=== PATIENT | female | born 1985 | race Caucasian/White ===

== ENCOUNTER 2021-06-14 09:04 | Observation (INO) | payer BC ==
[~2021-06-14] VITALS: Ht 165.1 cm; Wt 93.9 kg
[~2021-06-14 09:04] MED LIST: BUPR-364 PO; EMLA CREAM 5GM TUBE (LIDOCAINE/PRILOCAINE) TOP PRN; HEPARIN SOD (PORCINE) 5000UNITS/ML 1ML VIAL/SYRINGE SQ ONE; KETOROLAC 60MG 2ML VIAL As Ordered ONE; LIDOCAINE 1% MDV 20ML VIAL SQ PRN; LIDOCAINE 2% 100MG/5ML SDV (FOR ANES.) As Ordered ONE; LR 1,000 ML IV ONE; METH20TA31 PO; MIDAZOLAM INJ 2MG/2ML VIAL (J2250 PER 1MG) As Ordered ONE; ONDANSETRON 4MG/2ML VIAL As Ordered ONE; ROCURONIUM BROMIDE 50 MG/5 ML VIAL As Ordered ONE; SUGAMMADEX SODIUM 500 MG/5 ML VIAL (BRIDION) As Ordered ONE; ceFAZolin SOD 2 GM in IV 1 EA IV ONE; dexameTHASONE 4 MG/ML 1ML VIAL (J1100 PER 1MG) As Ordered ONE; fentaNYL 100 MCG/2 ML INJECTION As Ordered ONE; propofoL 200 MG/20 ML VIAL As Ordered ONE
[2021-06-14] MEDS ORDERED: BUPIVACAINE LIPOSOME/PF 1.3% 20ML VIAL (13.3MG/ML)(EXPAREL)(C9290 PER1MG) As Ordered ONE (10:50)
[2021-06-14] MEDS ORDERED: GENTAMICIN SULF 80MG/2ML VIAL As Ordered ONE (10:50)
[2021-06-14] MEDS ORDERED: LIDOCAINE 1% MDV 20ML VIAL As Ordered ONE (11:22)
[2021-06-14] MEDS ORDERED: EPINEPHrine INJ 1 MG/ML 1ML AMP As Ordered ONE (11:22)
[2021-06-14] MEDS ORDERED: fentaNYL 100 MCG/2 ML INJECTION As Ordered ONE (11:44)
[2021-06-14] MEDS ORDERED: propofoL 200 MG/20 ML VIAL As Ordered ONE ×2 (13:29→15:14)
[2021-06-14] MEDS ORDERED: LIDOCAINE 2% 100MG/5ML SDV (FOR ANES.) As Ordered ONE (13:56)
[2021-06-14] MEDS ORDERED: ACETAMINOPHEN 1000MG 100ML IV BTL (OFIRMEV) (J0131 PER 10MG) As Ordered ONE (15:15)
[2021-06-14] MEDS ORDERED: NITROGLYCERIN 2% OINT 1 GM *U/D* PKT As Ordered ONE (15:43)
[2021-06-14] MEDS ORDERED: METOCLOPRAMIDE INJ 10MG/2ML VIAL (J2765 PER 1) IV PRN (16:30)
[2021-06-14] MEDS ORDERED: MEPERIDINE INJ 25 MG/ML VIAL (J2175) IV PRN (16:30)
[2021-06-14] MEDS ORDERED: ONDANSETRON 4MG/2ML VIAL IV PRN ×2 (16:30→16:35)
[2021-06-14] MEDS ORDERED: fentaNYL 100 MCG/2 ML INJECTION IV PRN (16:30)
[2021-06-14] MEDS ORDERED: PERCOCET 5MG/325MG TAB PO PRN (16:30)
[2021-06-14] MEDS ORDERED: LR 1,000 ML IV SCH ×2 (16:30→16:35)
[2021-06-14] MEDS ORDERED: traMADol 50 MG TAB PO PRN (16:35)
[2021-06-14] MEDS ORDERED: KETOROLAC TROMETHAMINE 10 MG TAB PO PRN (16:35)
[2021-06-14] MEDS ORDERED: ACETAMINOPHEN TAB 650MG DOSE (2X325MG) PO PRN (16:35)
[2021-06-14 18:30] VITALS: BP 100/57
[2021-06-14 19:00] VITALS: BP 98/59
[2021-06-14] MEDS: ceFAZolin SOD 1 GM in D5W MINI-BAG PLUS 50 ML IV SCH (19:56)
[2021-06-14 20:00] VITALS: BP 105/66
[2021-06-14 21:00] VITALS: BP 115/63
[2021-06-14 22:00] VITALS: BP 111/69
[2021-06-15 02:00] VITALS: BP 119/59
[2021-06-15] MEDS: ceFAZolin SOD 1 GM in D5W MINI-BAG PLUS 50 ML IV SCH (03:41)
[2021-06-15 06:00] VITALS: BP 115/59
[2021-06-15] MEDS ORDERED: TRAM50TA2 PO (09:44)
== END 2021-06-15 12:30 | disposition home or self-care (01) ==
LOC: M SDC 09:04 → M MS5PR 09:05 → EDUNIT# 11:15 → M MS5PR 18:30
PROVIDERS: ADMIT Plastic Surgery Surgery of the Hand; ATTEND Plastic Surgery Surgery of the Hand
DX: N62 Hypertrophy of breast (principal); F41.9 Anxiety disorder, unspecified; F32.9 Major depressive disorder, single episode, unspecified; Z79.899 Other long term (current) drug therapy; Z88.2 Allergy status to sulfonamides
CPT/HCPCS: 19318; 88300; 88305; 96365; 96366; C9290; J0131; J0171; J0690; J1100; J1580; J1644; J1885; J2250; J2405; J3010

== ENCOUNTER 2021-08-30 06:14 | Day surgery (SDC) | payer BC ==
[~2021-08-30] VITALS: Ht 165.1 cm; Wt 93.8 kg
[~2021-08-30 06:14] MED LIST changes: -EMLA CREAM 5GM TUBE (LIDOCAINE/PRILOCAINE) TOP PRN; -HEPARIN SOD (PORCINE) 5000UNITS/ML 1ML VIAL/SYRINGE SQ ONE; -KETOROLAC 60MG 2ML VIAL As Ordered ONE; -LIDOCAINE 1% MDV 20ML VIAL SQ PRN; -LIDOCAINE 2% 100MG/5ML SDV (FOR ANES.) As Ordered ONE; -LR 1,000 ML IV ONE; -MIDAZOLAM INJ 2MG/2ML VIAL (J2250 PER 1MG) As Ordered ONE; -ONDANSETRON 4MG/2ML VIAL As Ordered ONE; -ROCURONIUM BROMIDE 50 MG/5 ML VIAL As Ordered ONE; -SUGAMMADEX SODIUM 500 MG/5 ML VIAL (BRIDION) As Ordered ONE; +TRAM50TA2 PO; -ceFAZolin SOD 2 GM in IV 1 EA IV ONE; -dexameTHASONE 4 MG/ML 1ML VIAL (J1100 PER 1MG) As Ordered ONE; -fentaNYL 100 MCG/2 ML INJECTION As Ordered ONE; -propofoL 200 MG/20 ML VIAL As Ordered ONE
[2021-08-30 06:57] LABS: HEMATOCRIT 44.9 % (36.0-47.0); HEMOGLOBIN 14.9 g/dl (12.0-15.5); MEAN CORPUSCULAR HGB CONC 33.2 g/dl (32.0-36.5); MEAN CORPUSCULAR VOLUME 90.5 fl (80.0-96.0); PLATELET COUNT, AUTOMATED 209 10^3/uL (150-450); RED BLOOD COUNT 4.96 10^6/uL (4.00-5.40)
[2021-08-30] MEDS ORDERED: ceFAZolin SOD 2 GM in IV 1 EA IV ONE (07:00)
[2021-08-30] MEDS ORDERED: BUPIVACAINE HCL 0.25% 10ML VIAL As Ordered ONE (07:17)
[2021-08-30] MEDS ORDERED: ceFAZolin 1GM VIAL (J0690 PER 500MG) As Ordered ONE (07:17)
[2021-08-30] MEDS ORDERED: BUPIVACAINE LIPOSOME/PF 1.3% 20ML VIAL (13.3MG/ML)(EXPAREL) As Ordered ONE (07:17)
[2021-08-30 07:23] LABS: BLOOD UREA NITROGEN 15 MG/DL (7-18); CALCIUM LEVEL 9.1 MG/DL (8.5-10.1); CARBON DIOXIDE LEVEL 23 MEQ/L (21-32); CHLORIDE LEVEL 109 MEQ/L (98-107); CREATININE FOR GFR 0.74 MG/DL (0.55-1.30); GLOMERULAR FILTRATION RATE > 60.0 (>60); GLUCOSE, FASTING 96 MG/DL (70-100); POTASSIUM SERUM 4.3 MEQ/L (3.5-5.1); SODIUM LEVEL 143 MEQ/L (136-145)
[2021-08-30] MEDS ORDERED: KETOROLAC 60MG 2ML VIAL As Ordered ONE (07:48)
[2021-08-30] MEDS ORDERED: MIDAZOLAM INJ 2MG/2ML VIAL (J2250 PER 1MG) As Ordered ONE (07:48)
[2021-08-30] MEDS ORDERED: propofoL 200 MG/20 ML VIAL As Ordered ONE ×2 (07:48→08:56)
[2021-08-30] MEDS ORDERED: dexameTHASONE 4 MG/ML 1ML VIAL (J1100 PER 1MG) As Ordered ONE (07:48)
[2021-08-30] MEDS ORDERED: LIDOCAINE 2% 100MG/5ML SDV (FOR ANES.) As Ordered ONE (07:48)
[2021-08-30] MEDS ORDERED: fentaNYL 250 MCG/5 ML INJECTION As Ordered ONE (07:48)
[2021-08-30] MEDS ORDERED: ONDANSETRON 4MG/2ML VIAL As Ordered ONE (07:48)
[2021-08-30] MEDS ORDERED: LR 1,000 ML IV SCH (09:15)
[2021-08-30] MEDS ORDERED: fentaNYL 100 MCG/2 ML INJECTION IV PRN (09:15)
[2021-08-30] MEDS ORDERED: ONDANSETRON 4MG/2ML VIAL IV PRN (09:15)
[2021-08-30] MEDS ORDERED: oxyCODONE 5MG TAB PO PRN (09:15)
[2021-08-30] MEDS ORDERED: AMOX500T PO (09:28)
[2021-08-30 10:50] VITALS: BP 119/72
== END 2021-08-30 11:00 | disposition home or self-care (01) ==
LOC: M SDC 06:14
PROVIDERS: ATTEND Plastic Surgery Surgery of the Hand
DX: N64.1 Fat necrosis of breast (principal); T81.31XA Disruption of external operation (surgical) wound, not elsewhere classified, initial encounter; K58.8 Other irritable bowel syndrome; K21.9 Gastro-esophageal reflux disease without esophagitis; F41.9 Anxiety disorder, unspecified; F32.9 Major depressive disorder, single episode, unspecified; Z79.899 Other long term (current) drug therapy; Z88.2 Allergy status to sulfonamides
CPT/HCPCS: 15860; 19350; 36415; 80048; 85027; 87070; 87075; 87077; 87186; 87205; 88304; C9290; J0690; J1100; J1885; J2250; J2405; J3010

== ENCOUNTER 2022-05-12 07:07 | Day surgery (SDC) | payer BC ==
[~2022-05-12] VITALS: Ht 165.1 cm; Wt 98.8 kg
[~2022-05-12 07:07] MED LIST changes: +AMOX500T PO; +HEPARIN SOD (PORCINE) 5000UNITS/ML 1ML VIAL/SYRINGE SQ ONE; +ceFAZolin SOD 2 GM in IV 1 EA IV ONE
[2022-05-12] MEDS ORDERED: LR 1,000 ML IV SCH ×2 (07:35→11:45)
[2022-05-12] MEDS ORDERED: propofoL 200 MG/20 ML VIAL As Ordered ONE (08:30)
[2022-05-12] MEDS ORDERED: ONDANSETRON 4MG 2ML VIAL As Ordered ONE (08:30)
[2022-05-12] MEDS ORDERED: LIDOCAINE 2% 100MG/5ML SDV (FOR ANES.) As Ordered ONE (08:30)
[2022-05-12] MEDS ORDERED: fentaNYL 250 MCG/5 ML INJECTION As Ordered ONE (08:31)
[2022-05-12] MEDS ORDERED: MIDAZOLAM INJ 2MG/2ML VIAL As Ordered ONE (08:31)
[2022-05-12] MEDS ORDERED: BUPIVACAINE LIPOSOME/PF 1.3% 20ML VIAL (13.3MG/ML)(EXPAREL) As Ordered ONE (08:34)
[2022-05-12] MEDS ORDERED: BUPIVACAINE HCL 0.25% 10ML VIAL As Ordered ONE (08:34)
[2022-05-12] MEDS ORDERED: GENTAMICIN SULF 80MG/2ML VIAL As Ordered ONE (08:34)
[2022-05-12] MEDS ORDERED: LIDOCAINE 1% MDV 20ML VIAL As Ordered ONE (08:41)
[2022-05-12] MEDS ORDERED: EPINEPHrine INJ 1 MG/ML 1ML AMP As Ordered ONE (08:41)
[2022-05-12] MEDS ORDERED: LIDOCAINE 5% OINT 30GM TUBE As Ordered ONE (09:21)
[2022-05-12] MEDS ORDERED: BALANCED SALT SOLN OPHTH 15 ML BTL As Ordered ONE (09:32)
[2022-05-12] MEDS ORDERED: HEPARIN SOD (PORCINE) 5000UNITS/ML 1ML VIAL/SYRINGE As Ordered ONE (09:35)
[2022-05-12] MEDS ORDERED: ACETAMINOPHEN 1000MG 100ML IV BAG As Ordered ONE (09:42)
[2022-05-12] MEDS ORDERED: ePHEDrine SULFATE 25 MG/5 ML(5MG/ML) SYRINGE As Ordered ONE (09:52)
[2022-05-12] MEDS ORDERED: ceFAZolin 1GM VIAL As Ordered ONE (09:55)
[2022-05-12] MEDS ORDERED: oxyCODONE 5MG TAB PO PRN (11:45)
[2022-05-12] MEDS ORDERED: fentaNYL 100 MCG/2 ML INJECTION IV PRN (11:45)
[2022-05-12] MEDS ORDERED: HYDROMORPHONE HCL 0.5 MG/ 0.5 ML SYRINGE IV PRN (11:45)
[2022-05-12] MEDS ORDERED: ONDANSETRON 4MG 2ML VIAL IV PRN (11:45)
[2022-05-12] MEDS ORDERED: TRAM50TA2 PO (12:05)
[2022-05-12 14:08] VITALS: BP 139/88
== END 2022-05-12 14:10 | disposition home or self-care (01) ==
LOC: M SDC 07:07
PROVIDERS: ATTEND Plastic Surgery Surgery of the Hand
DX: L90.5 Scar conditions and fibrosis of skin (principal); S21.001D Unspecified open wound of right breast, subsequent encounter; K58.8 Other irritable bowel syndrome; F41.9 Anxiety disorder, unspecified; F32.A Depression, unspecified; F90.9 Attention-deficit hyperactivity disorder, unspecified type; E66.9 Obesity, unspecified; Z86.16 Personal history of COVID-19; Z79.899 Other long term (current) drug therapy; Z88.2 Allergy status to sulfonamides; J30.2 Other seasonal allergic rhinitis
CPT/HCPCS: 19350; 19380; 81025; 88302; C9290; J1100; J2405

== ENCOUNTER 2025-04-07 09:03 | Day surgery (SDC) | payer BC ==
[~2025-04-07] VITALS: Ht 165.1 cm; Wt 76.7 kg
[~2025-04-07 09:03] MED LIST changes: +AMOX875T2 PO; +CETI10CH PO; +GABAPENTIN 300 MG CAP PO ONE; -HEPARIN SOD (PORCINE) 5000UNITS/ML 1ML VIAL/SYRINGE SQ ONE; +LIDOCAINE 2% 100 MG/5 ML SDV (FOR ANES.) As Ordered ONE; +MIDAZOLAM INJ 2 MG/2 ML VIAL As Ordered ONE; +ONDANSETRON 4MG/2ML VIAL As Ordered ONE; +ROCURONIUM BROMIDE 50MG/5ML VIAL As Ordered ONE; +SUGAMMADEX SODIUM 500 MG/5 ML VIAL As Ordered ONE; -ceFAZolin SOD 2 GM in IV 1 EA IV ONE; +dexAMETHasone 4 MG/ML 1 ML VIAL As Ordered ONE
[2025-04-07] MEDS ORDERED: LR 1,000 ML IV SCH (09:25)
[2025-04-07] MEDS: SCOPOLAMINE 1MG TRANSDERMAL PATCH TOP ONE (09:51)
[2025-04-07] MEDS ORDERED: ACETAMINOPHEN 1000MG/100ML IV BAG As Ordered ONE (12:06)
[2025-04-07] MEDS: GENTAMICIN SULF 80 MG/2 ML VIAL As Ordered ONE (12:27)
[2025-04-07] MEDS ORDERED: MORPHINE 2 MG/ML 1 ML VIAL IV PRN (14:30)
[2025-04-07] MEDS ORDERED: HYDROMORPHONE HCL 0.5 MG/0.5 ML SYRINGE IV PRN (14:30)
[2025-04-07] MEDS ORDERED: TRAM50TA2 PO (14:30)
[2025-04-07] MEDS: ONDANSETRON 4MG/2ML VIAL IV PRN (14:48)
[2025-04-07 15:52] VITALS: BP 118/68; TEMP 97.6; O2SAT 100
== END 2025-04-07 16:13 | disposition home or self-care (01) ==
LOC: M SDC 09:03
PROVIDERS: ATTEND Plastic Surgery Surgery of the Hand
DX: L90.5 Scar conditions and fibrosis of skin (principal); N65.0 Deformity of reconstructed breast; Z88.2 Allergy status to sulfonamides
CPT/HCPCS: 14000; 14001; 19380; 81025; 88302; J0131; J0665; J0666; J0688; J1100; J1580; J2250; J2405; J3010